=== PATIENT | male | born 1975 | race Caucasian/White ===

== ENCOUNTER → 2018-01-17 | Outpatient (CLI) | payer BC ==
[2013-10-12 08:04] VITALS: BP 114/66
[~2018-01-17] MED LIST: ALLO100T PO; ASPI-482 PO; BYSTOLIC5 MG PO; COLC0.6T34 PO; DOXY100T PO; GABA-586 PO; IRON100V2 IV; OMEP20TA8 PO; PANT20TA2 PO; PHEN37.599 PO; SUCR1TAB35 PO; allergy drops PO
--- NOTE | 2018-01-17 14:42 | KCIC ---
MR of the right shoulder Indication: Right shoulder pain. Surgery in 2004. Pain extends into the chest and arm. Technique: Standard multiplanar sequences are obtained. Findings: Artifact: No significant image degradation. Acromioclavicular joint: Mildly degenerative with mild undersurface osteophytes Rotator cuff: * Supraspinatus-infraspinatus tendon: Small fluid defect within the anterior supraspinatus tendon, does not violate the articular side or bursal side, and is compatible with a small concealed intrasubstance tear, coronal series 6, image 12. No surface rupture or retraction of the rotator cuff. * Subscapularis tendon: Intact * Muscle bulk: Within normal limits * Subacromial subdeltoid bursa: No significant effusion. Fluid: No significant glenohumeral effusion. Glenohumeral cartilage: Mildly degenerative Labrum: Superior labral signal suspicious for a small tear. Biceps tendon: Intact Bones: No lesion or acute fracture. Soft tissue: No acute findings. Impression: 1. Small concealed intrasubstance defect or tear of the supraspinatus tendon. No surface defect or rupture. 2. Suspect small superior labral tear. Electronically signed by: Rubio Gerber MD (01/17/2018 2:38 PM) [id number]
== END | disposition home or self-care (01) ==
LOC: KCIC MRI 07:44
PROVIDERS: ATTEND Physician Assistant Medical
DX: M19.011 Primary osteoarthritis, right shoulder (principal); M25.711 Osteophyte, right shoulder
CPT/HCPCS: 73221

== ENCOUNTER → 2018-01-28 | Outpatient (CLI) | payer BC ==
[2013-10-12 08:04] VITALS: BP 114/66
--- NOTE | 2018-01-28 11:44 | KCIC ---
MRI Cervical Spine Without Contrast History: Right shoulder pain, right arm numbness after yard work 12/04/2017 Technique: Multiplanar, multi sequential noncontrast MR imaging was performed of the cervical spine. Comparison: None Findings: There is some motion degradation. Cervical cord caliber is within normal limits without significant focal signal abnormality. There is no significant abnormality of the cervical medullary junction. Cervical vertebral body stature and AP alignment are maintained. There is [id number] degenerative disc disease at C5-C6 and to a somewhat lesser degree at C6-C7, mild disc desiccation C3-4 and C4-C5. There is no significant marrow edema. C2-C3: Spinal canal and the neural foramina are adequate. C3-C4: There is minimal posterior bulge. Central canal is adequate about 11 mm. Neural foramina are adequate. C4-C5: There is minimal bulge somewhat greater in the left lateral recess. Central canal is borderline about 10 mm. Right neural foramen is adequate, [id number] narrowing of the left neural foramen mostly from facet degenerative change. C5-C6: There is disc osteophyte complex and bulge/broad protrusion, indentation upon the ventral thecal sac with effacement of ventral subarachnoid space and contact of the ventral cord. There could be a very shallow extrusion extending slightly below the intervertebral disc space although poorly evaluated due to motion artifact. Central canal is narrowed to 6-7 mm. There is bilateral facet hypertrophic change greater on the left, also left uncovertebral degenerative change. There is fairly severe narrowing of the left neural foramen, right neural foramen overall adequate. C6-C7: There is a broad posterior protrusion greater in the right lateral recess. There is effacement of ventral subarachnoid space and impingement of the ventral cord, central canal narrowed to about 6-7 mm, somewhat greater of right lateral recess stenosis. There is moderate to severe facet degenerative change. There is likely mild narrowing of the left neural foramen, moderate to severe narrowing on the right. C7-T1: Spinal canal and neural foramina are adequate. Impression: 1. There is spinal stenosis on the order of 6 to 7 mm at C5-6 and C6-7 with impingement of the ventral cord at these levels. 2. There is [id number] degenerative disc disease at C5-C6 and to lesser degree at C6-7. 3. There is neural foramina compromise as stated, more significant narrowing on the left at C5-6 and an on the right at C6-7, to lesser degree on the left at C4-C5. Electronically signed by: Carmine Fay MD (01/28/2018 11:40 AM) [id number]
== END | disposition home or self-care (01) ==
LOC: KCIC MRI 09:46
PROVIDERS: ATTEND Orthopaedic Surgery
DX: M50.323 Other cervical disc degeneration at C6-C7 level (principal); M50.223 Other cervical disc displacement at C6-C7 level; M48.02 Spinal stenosis, cervical region; M25.78 Osteophyte, vertebrae; I10 Essential (primary) hypertension; Z86.2 Personal history of diseases of the blood and blood-forming organs and certain disorders involving the immune mechanism
CPT/HCPCS: 72141